=== PATIENT | female | born 1985 | race Caucasian/White ===

== ENCOUNTER 2016-05-10 13:52 | Outpatient (RCR) | payer BC ==
[~2016-05-10 13:52] MED LIST: AMOX-358 PO; CARB10VI IV; CITA10TA70 PO; HYOS0.1216 PO; ONDA-42 SL; OXYC-197 PO; PREN1TAB71 PO; SPRINTEC PO; VALIUM; VNL37.5T PO; benadryl; decadron; gabapentin; gabapentin PO; taxol
--- OUTSIDE RECORDS SUMMARY | 2016-05-10 13:56 | XMS REPORT | Continuity of Care Document ---
Author Author [facility] Organization [facility] Address Unknown Phone Unavailable Care Team Providers Care Pharm Spec Name Role Phone Dhara Stanton PCP [phone] Source Comments Some departments are not documenting in the electronic medical record. If you do not see the information that you expected, contact Release of Information in the Health Information Management department at [phone] for further assistance in locating additional records.[facility] Active Allergies and Adverse Reactions Allergen Noted Date Severity Reactions Comments Keflex 07/23/2014 Medium RASH Current Medications Prescription Sig. Disp. Refills Start End Date Status Date cetirizine (ZYRTEC) 10 mg Take 10 mg by mouth Active tablet daily. MULTIVITAMIN (VITAMIN A Take by mouth. Active DAY PO) Active Problems Problem Noted Date BRCA1 genetic carrier 08/05/2015 Overview: Formatting of this note may be different from the original. Ms. 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 She is also positive for BRCA 1 mutation and presents to our clinic for treatment and management. DIAGNOSIS: 1. 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 BRCA 1 positive HISTORY: Ms Leung is a female who presented to the Breast Cancer Clinic on 12/18/2013 at age 28 for evaluation of newly diagnosed left breast cancer. She has a significant family history. Left breast sono-guided biopsy 12/24/13 () revealed grade 3 triple negative IDC. Right lower breast MRI-guided biopsy 12/29/13 () revealed fibrosis. She underwent a left skin sparing mastectomy and left SLNBx, and right skin sparing prophylactic mastectomy and placement of tissue expanders 07/13/14. 0/4 lymph nodes were positive, there was no residual cancer in the left mastectomy specimen, and no evidence of malignancy in the right mastectomy specimen. Ms. Trejo had her Dolores exchanged for larger Dolores on 11/16/14. She was admitted on 01/07/15 for a left chest wall cellulitis. She had her Dolores exchanged for silicone implants 04/04/15. 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 Heavy flow with first day. Engaged and planning to 11/2015. Saw a fertility specialist in [place] prior to chemotherapy for oocyte preservation. Last PAP was most likely with oocyte preservation and was negative per patient. Admits to h/o HPV and abnormal PAP with cryotherapy. CHEMO HX: Carboplatin with dose dense Paclitaxel administered from 02/02/14-04/19/14, followed by dose dense Adriamycin and Cytoxan therapy x 3 which ended 05/2014 due to decline in cardiac function. She was then placed on leuprolide for ovarian suppression for short while. Could not recall dates. Engaged and plans to 11/2015 in [place]. Desires and will try conceiving shortly after wedding. Pelvic ultrasound 09/30/15: 1. Resolution of previously noted small thick walled cystic lesion in the left ovary. There has been development of a small cyst with thin internal septation versus 2 adjacent small cysts within the right ovary since 08/30/2015. This measures up to 2.1 cm and is most likely physiologic. If there is further clinical concern, follow-up ultrasound in 6 weeks could be obtained. Lab Results Component Value Date CA125 14 08/30/2015 Last Assessment & Plan: 1. Ms. Leung is a 30 yo female with h/o stage IA, grade 3 triple negative IDC of the L breast and BRCA 1 gene mutation. 2. Desires fertility and presents for surveillance visit. 3. MOON today. 4. Continue monitoring with pelvic ultrasound and CA125. 5. RV 6 months. Aware to call with symptoms such as early satiety, abdominal pain/bloating, N/V, vaginal bleeding/discharge or change in bowel/bladder habits. S/P mastectomy, bilateral 07/13/2014 Personal history of breast cancer 12/17/2013 Overview: DIAGNOSIS: 1. 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 BRCA 1 positive HISTORY: Ms Trejo is a female who presented to the Breast Cancer Clinic on 12/18/2013 at age 28 for evaluation of newly diagnosed left breast cancer. She has a significant family history. Left breast sono-guided biopsy 12/24/13 () revealed grade 3 triple negative IDC. Right lower breast MRI-guided biopsy 12/29/13 () revealed fibrosis. She underwent a left skin sparing mastectomy and left SLNBx, and right skin sparing prophylactic mastectomy and placement of tissue expanders 07/13/14. 0/4 lymph nodes were positive, there was no residual cancer in the left mastectomy specimen, and no evidence of malignancy in the right mastectomy specimen. Ms. Trejo had her Dolores exchanged for larger Dolores on 11/16/14. She was admitted on 01/07/15 for a left chest wall cellulitis. She had her Dolores exchanged for silicone implants 04/04/15. BREAST IMAGING: Mammogram: -- Bilateral diagnostic 11/21 ([facility]) Moderate fibroglandular tissue grossly symmetric. No distinct calcifications or skin thickening identified. Deep left breast 12:00 mildly irregular margins. No associated calcification. No definite enlarged lymph nodes identified. BIRAD-5 Biopsy required. Ultrasound: -- Left breast ultrasound 11/21 ([facility]) of heterogeneously irregularly marginated mass at 12:00, 4-5cm FTN with non-parallel growth component. Hypervascular in periphery. Embedded with mild hypoechoic fibroglandular ridge measuring 13mm suspicious with few scattered simple cysts and few clustered clustered cysts. Left axilla three loosely clustered lymph nodes indeterminate. Left breast CNB 11/21 ([facility]) pathology revealed at 12:00, 4-5cm FTN, high grade DCIS without necrosis, no invasive carcinoma detected. No microcalcifications observed. Left axillary ultrasound 11/21 ([facility]) no specific hypoechoic nodules or gross enlargement. Determined to be benign. -- Targeted left breast ultrasound 12/24/13 () revealed a 1.7 cm hypoechoic mass at 12:00, 5 cm FTN. MRI: -- Bilateral breast MRI 12/24/13 () revealed a 1.5 cm mass at 11:30-12:00 corresponding to the known cancer. There were multiple subcentimeter round/oval enhancing foci in the outer and lower outer right breast. This was asymmetric when compared to the left breast. The largest enhancing focus measured 6 mm. The foci of enhancement did not correspond to cysts or any other definitively benign finding. Scattered benign cysts were seen elsewhere in the right breast. There was no right axillary adenopathy. REPRODUCTIVE HEALTH: Age at first Menarche: 10 Age at First Live : N/A Age at Menopause: pre menopausal : 3 ( termination x 2 and SAB x 1) Para: 0 : N/A Admits that menstrual frequency q 24-28 days with duration 3-4. Heavy flow with first day. Engaged and planning to 11/2015. Saw a fertility specialist in [place] prior to chemotherapy for oocyte preservation. PROCEDURE: 1. Left skin sparing mastectomy and left SLNBx, and right skin sparing prophylactic mastectomy and placement of tissue expanders 07/13/14 2. TE exchange for larger Dolores, 11/16/14 3. Dolores exchanged for silicone implants, 04/04/15 PERTINENT PMH: Negative FAMILY HISTORY: Maternal grandmother with breast cancer. Mother with ovarian cancer, negative for pancreatic. PHYSICAL EXAM on PRESENTATION: Left - 1.5 cm palpable mass at 12:00 5 cm FTN. Right - No palpable breast masses. No skin, nipple, or areolar change. No supraclavicular or axillary adenopathy. MEDICAL ONCOLOGY: Dr. Luther/Dr. Burk PRESENT THERAPY: Finished neoadjuvant AC followed by taxol/carbo REFERRED BY: Dr Adrian Reid ast Assessment & Plan: 1. Ms. Leung is a 30 yo female with h/o stage IA, grade 3 triple negative IDC of the L breast and BRCA 1 gene mutation. 2. Desires fertility and presents for surveillance visit. 3. MOON today. 4. PAP collected. 5. Continue monitoring with pelvic ultrasound and CA125. 6. RV 6 months. Aware to call with symptoms such as early satiety, abdominal pain/bloating, N/V, vaginal bleeding/discharge or change in bowel/bladder habits. Resolved Problems Problem Noted Date Resolved Date Cellulitis 01/07/2015 02/04/2015 Infection and inflammatory reaction due to internal prosthetic device, 01/0702/04/2015 implant, and graft (HCC) Breast asymmetry in female 10/06/2014 05/25/2015 Most Recent Encounters Date Type Specialty Providers Description 03/27/2016 Hospital Encounter 03/26/2016 Hospital Afshan Carrion APRN Breast cancer (HCC) Encounter 03/26/2016 Office Visit Oncology Afshan Carrion APRN BRCA1 genetic carrier (Primary Dx); Personal history of breast cancer 03/26/2016 Hospital Radiology Afshan Carrion APRN Encounter 03/26/2016 Orders Only Oncology Afshan Carrion APRN BRCA1 positive ( Primary Dx) 03/26/2016 Ancillary Oncology Afshan Carrion APRN BRCA1 positive ( Primary Orders Dx); Cyst of left ovary 03/14/2016 Nurse Only Plastic Surgery Corina Souza LPN 02/15/2016 Office Visit Plastic Surgery Carlene Leon MD S/P mastectomy, bilateral (Primary Dx); Personal history of breast cancer; BRCA1 genetic carrier 02/10/2016 Documentation Oncology Gage Burk MD Social History Tobacco Use Types Packs/Day Years Used Date Passive Smoke Exposure - Never Smoker Smokeless Tobacco: Never Used Alcohol Use Drinks/Week oz/Week Comments No 0.0 1-2 drinks per month Last Filed Vital Signs Vital Sign Reading Time Taken Blood Pressure 100/66 03/26/2016 12:10 PM CDT Pulse 64 03/26/2016 12:10 PM CDT Temperature 36.7 C (98 F) 03/26/2016 12:10 PM CDT Respiratory Rate 16 01/23/2016 1:53 PM CDT Height 1.676 m (5' 6") 03/26/2016 12:10 PM CDT Weight 55.157 kg (121 lb 9.6 oz) 03/26/2016 12:10 PM CDT Body Mass Index 19.64 03/26/2016 12:10 PM CDT Oxygen Saturation 100% 03/26/2016 12:10 PM CDT Plan of Care Date Type Specialty Providers Description 07/30/2016 Appointment Breast Clinic / Breast Chirag Robertson DO Center [address] [place] [address] [phone] (Fax) 09/24/2016 Appointment Radiology Afshan Carrion APRN [address] [facility] [address] [place] [address] [phone] (Fax) 09/24/2016 Appointment Oncology 09/24/2016 Appointment Oncology Renetta Irene MD [address] [facility] [address] [place] [address] [phone] (Fax) Health Maintenance Due Date Last Done Comments Physical (Comprehensive) 09/07/1990 Exam Pertussis Vaccine 09/07/1994 Tetanus Vaccine 09/07/2000 Influenza Vaccine 02/09/2016 Cervical Cancer Screening 03/26/2019 03/26/2016, 08/30/2015 Results from Last 3 Months PAP THIN PREP (03/26/2016 1:30 PM) Component Value Range Cytology [facility] [email or web address] Radha Rain MD, Director Cytopathology Department of Pathology and Laboratory Medicine [address] [place] [address] Office: [phone] CYTOLOGY REPORT NAME: MIRIAN LEUNG CYTOLOGY #: [id number] MR #: [id number] ALT ID #: [id number] #: [id number] LOCATION: [facility] DATE OF PROCEDURE: 03/26/2016 13:30 AGE: 30 SEX: F DATE RECEIVED: 03/27/2016 : 1985 TIME RECEIVED: 13:30 PHYSICIAN: RYAN HENDERSON DATE OF REPORT: 04/04/2016 COPY TO: DATE OF PRINTIN04/05/2016 HISTORY: Date of Last Menstrual Period: None Given Menstrual History: Regular No LMP given Contraceptive History: None Cancer History: Breast Infection History: None Given Treatment History: None Other Clinical Conditions: None Given MATERIAL RECEIVED: A: Thin Prep Pap Test-Cervical /Vaginal Cytologic Material ################################################## ###################### Final Diagnosis: A. Thin Prep Pap Test-Cervical /Vaginal Cytologic Material: Satisfactory for evaluation. Quality Indicator: Endocervical/transformation component is present. Negative for intraepithelial lesion or malignancy. Endometrial cells present. This specimen has been sent to [facility] for Human Papilloma Virus (HPV) DNA detection with genotyping (High-risk types). Results will be reported as a separate report in O2. Results will also be reported as an addendum to this Pap smear report. Comment The primary screening of this case is performed at the [facility], [address] [place] [address]. Attestation: By this signature, I attest that I have personally formulated the final interpretation expressed in this report and that the above diagnosis is based upon my examination of the slides and/or other material indicated in this report. clk/04/04/2016 +++Electronically Signed Out By FILOMENA Jordan(ASCP)+++ Cervical cytology is a SCREENING TEST primarily for detecting cancers and precancerous lesions. This screening test has a well documented false negative rate. Your patient's pap test results should be interpreted in conjunction with history and clinical findings. Reported using [facility] terminology. ################################################## ###################### Procedures/Addenda HPV Date Ordered: 04/03/2016 Status: Signed Out Date Complete: 04/03/2016 By: Ayse Molina M.D. Date Reported: 04/05/2016 Interpretation HPV High Risk type 16, PCR: Negative HPV High Risk type 18, PCR: Negative HPV other High Risk Types PCR: Negative - The following other High Risk HPV types were not detected: 31, 33, 35, 39, 45, 51, 52, 56, 58, 59, 66, and 68 Test information: The HPV test is performed at the [facility], [address] [place] [address]. This test was developed and its performance characteristics determined by the department of Laboratory Medicine and Pathology, [facility]. This assay is validated but not FDA approved for vaginal source specimens. Results-Comments {Not Entered} HUMAN PAPILLOMAVIRUS (03/26/2016 1:30 PM) Component Value Range Specimen Source HPV [facility] HPV H Risk Type 16 Negative Reference range: Negative [facility] HPV H Risk Type 18 Negative Reference range: Negative [facility] HPV Other H Risk Type Negative Reference range: Negative The following Other High Risk HPV types were not detected: 31, 33, 35, 39, 45, 51, 52, 56, 58, 59, 66, and 68 [facility] CA125 (03/26/2016 11:00 AM) Component Value Range CA-125 22 <35 U/ml Specimen Blood US TRANSVAGINAL (03/26/2016 10:43 AM) Impressions 1. Normal size uterus and ovaries with interval resolution of previously seen small cyst. 2. Small amount of pelvic free fluid, which is within normal physiological limits. Approved by Juan Powers M.D. on 03/26/2016 1:59 PM By my electronic signature, I attest that I have personally reviewed the images for this examination and formulated the interpretations and opinions expressed in this report Finalized by Madi Baron M.D. on 03/26/2016 2:23 PM. Dictated by Juan Powers M.D. on 03/26/2016 10:51 AM. Narrative ULTRASOUND OF THE PELVIS Clinical History: BRCA1 positive. Cyst of left ovary. Comparison: Pelvic ultrasound from September 30, 2015. Technique: Multiple real time blank scale sonographic images were obtained of the pelvis transvaginally and transabdominally. Findings: Madi Baron M.D. has personally reviewed these images and formulated the interpretations and opinions expressed in this report. The uterus is normal in size measuring 7.5 x 2.0 x 5.5 cm. The endometrium is normal in thickness measuring 0.2 cm. Note is made of small nabothian cysts. No endometrial masses or abnormal blood flow is seen. The right ovary measures 4.1 x 1.1 x 1.1 cm. The resistive index in the right ovary is 0.6. The left ovary measures 2.3 x 1.1 x 0.8 cm. The resistive index in the left ovary is 0.6. No abnormal adnexal masses are present. There is a small amount of pelvic free fluid, which is within normal physiological limits. Procedure Note Interface, Radiant Results - SatMar 26, 2016 2:26 PM CDT ULTRASOUND OF THE PELVIS Clinical History: BRCA1 positive. Cyst of left ovary. Comparison: Pelvic ultrasound from September 30, 2015. Technique: Multiple real time blank scale sonographic images were obtained of the pelvis transvaginally and transabdominally. Findings: Madi Baron M.D. has personally reviewed these images and formulated the interpretations and opinions expressed in this report. The uterus is normal in size measuring 7.5 x 2.0 x 5.5 cm. The endometrium is normal in thickness measuring 0.2 cm. Note is made of small nabothian cysts. No endometrial masses or abnormal blood flow is seen. The right ovary measures 4.1 x 1.1 x 1.1 cm. The resistive index in the right ovary is 0.6. The left ovary measures 2.3 x 1.1 x 0.8 cm. The resistive index in the left ovary is 0.6. No abnormal adnexal masses are present. There is a small amount of pelvic free fluid, which is within normal physiological limits. IMPRESSION 1. Normal size uterus and ovaries with interval resolution of previously seen small cyst. 2. Small amount of pelvic free fluid, which is within normal physiological limits. Approved by Juan Powers M.D. on 03/26/2016 1:59 PM By my electronic signature, I attest that I have personally reviewed the images for this examination and formulated the interpretations and opinions expressed in this report Finalized by Madi Baron M.D. on 03/26/2016 2:23 PM. Dictated by Juan Powers M.D. on 03/26/2016 10:51 AM. US PELVIS NON OB COMP (03/26/2016 10:43 AM) Impressions 1. Normal size uterus and ovaries with interval resolution of previously seen small cyst. 2. Small amount of pelvic free fluid, which is within normal physiological limits. Approved by Juan Powers M.D. on 03/26/2016 1:59 PM By my electronic signature, I attest that I have personally reviewed the images for this examination and formulated the interpretations and opinions expressed in this report Finalized by Madi Baron M.D. on 03/26/2016 2:23 PM. Dictated by Juan Powers M.D. on 03/26/2016 10:51 AM. Narrative ULTRASOUND OF THE PELVIS Clinical History: BRCA1 positive. Cyst of left ovary. Comparison: Pelvic ultrasound from September 30, 2015. Technique: Multiple real time blank scale sonographic images were obtained of the pelvis transvaginally and transabdominally. Findings: Madi Baron M.D. has personally reviewed these images and formulated the interpretations and opinions expressed in this report. The uterus is normal in size measuring 7.5 x 2.0 x 5.5 cm. The endometrium is normal in thickness measuring 0.2 cm. Note is made of small nabothian cysts. No endometrial masses or abnormal blood flow is seen. The right ovary measures 4.1 x 1.1 x 1.1 cm. The resistive index in the right ovary is 0.6. The left ovary measures 2.3 x 1.1 x 0.8 cm. The resistive index in the left ovary is 0.6. No abnormal adnexal masses are present. There is a small amount of pelvic free fluid, which is within normal physiological limits. Procedure Note Interface, Radiant Results - Mon Mar 26, 2016 2:26 PM CDT ULTRASOUND OF THE PELVIS Clinical History: BRCA1 positive. Cyst of left ovary. Comparison: Pelvic ultrasound from September 30, 2015. Technique: Multiple real time blank scale sonographic images were obtained of the pelvis transvaginally and transabdominally. Findings: Madi Baron M.D. has personally reviewed these images and formulated the interpretations and opinions expressed in this report. The uterus is normal in size measuring 7.5 x 2.0 x 5.5 cm. The endometrium is normal in thickness measuring 0.2 cm. Note is made of small nabothian cysts. No endometrial masses or abnormal blood flow is seen. The right ovary measures 4.1 x 1.1 x 1.1 cm. The resistive index in the right ovary is 0.6. The left ovary measures 2.3 x 1.1 x 0.8 cm. The resistive index in the left ovary is 0.6. No abnormal adnexal masses are present. There is a small amount of pelvic free fluid, which is within normal physiological limits. IMPRESSION 1. Normal size uterus and ovaries with interval resolution of previously seen small cyst. 2. Small amount of pelvic free fluid, which is within normal physiological limits. Approved by Juan Powers M.D. on 03/26/2016 1:59 PM By my electronic signature, I attest that I have personally reviewed the images for this examination and formulated the interpretations and opinions expressed in this report Finalized by Madi Baron M.D. on 03/26/2016 2:23 PM. Dictated by Juan Powers M.D. on 03/26/2016 10:51 AM.
[2016-05-10 14:08] LABS: BASOPHILS % (AUTO) 0 % (0-10); EOSINOPHILS # (AUTO) 0.1 10^3/uL (0.0-0.3); EOSINOPHILS % (AUTO) 2 % (0-10); LYMPHOCYTES # (AUTO) 2.1 X 10^3 (1.0-4.0); LYMPHOCYTES % (AUTO) 27 % (12-44); MEAN CORPUSCULAR HEMOGLOBIN 33 PG (25-34); MEAN CORPUSCULAR HGB CONC 35 G/DL (32-36); MEAN CORPUSCULAR VOLUME 93 FL (80-99); MEAN PLATELET VOLUME 10.3 FL (7.4-10.4); MONOCYTES # (AUTO) 0.7 X 10^3 (0.0-1.0); MONOCYTES % (AUTO) 9 % (0-12); NEUTROPHILS % (AUTO) 62 % (42-75); PLATELET COUNT 164 10^3/uL (130-400); RED BLOOD COUNT 4.06 10^6/uL (4.35-5.85); RED CELL DISTRIBUTION WIDTH 12.3 % (10.0-14.5); WHITE BLOOD COUNT 7.9 10^3/uL (4.3-11.0)
[2016-05-10 15:25] LABS: ALANINE AMINOTRANSFERASE 14 U/L (0-55); ALBUMIN 4.6 G/DL (3.2-4.5); ANION GAP 10 MMOL/L (5-14); ASPARTATE AMINO TRANSFERASE 24 U/L (5-34); BILIRUBIN,TOTAL 0.4 MG/DL (0.1-1.0); BLOOD UREA NITROGEN 16 MG/DL (7-18); BUN/CREATININE RATIO 21; CALCIUM 9.4 MG/DL (8.5-10.1); CARBON DIOXIDE 23 MMOL/L (21-32); CHLORIDE 106 MMOL/L (98-107); CREATININE SERUM 0.78 MG/DL (0.60-1.30); GFR ESTIMATED > 60; GLUCOSE 70 MG/DL (70-105); POTASSIUM 3.8 MMOL/L (3.6-5.0); SODIUM 139 MMOL/L (135-145); TOTAL PROTEIN 6.7 G/DL (6.4-8.2)
[2016-05-11 06:49] LABS: LUTEINIZING HORMONE 3.1 mIU/mL
[2016-05-11 06:50] LABS: FOLLICLE STIMULATING HORMONE 2.6 mIU/mL
== END 2016-08-02 16:02 | disposition home or self-care (01) ==
LOC: ONC 13:52
PROVIDERS: ATTEND Internal Medicine Hematology & Oncology
DX: C50.412 Malignant neoplasm of upper-outer quadrant of left female breast (principal); Z17.0 Estrogen receptor positive status [ER+]; D64.9 Anemia, unspecified; Z90.13 Acquired absence of bilateral breasts and nipples; Z79.899 Other long term (current) drug therapy
CPT/HCPCS: 36415; 80053; 82670; 83001; 83002; 85025; 99213

== ENCOUNTER 2016-08-09 09:33 | Outpatient (RCR) | payer BC ==
--- OUTSIDE RECORDS SUMMARY | 2016-08-02 16:13 | XMS REPORT | Continuity of Care Document ---
Author Author [facility] Organization [facility] Address Unknown Phone Unavailable Care Team Providers Care [employer] Attendant Name Role Phone Romy Dhara PCP [phone] Source Comments Some departments are not documenting in the electronic medical record. If you do not see the information that you expected, contact Release of Information in the Health Information Management department at [phone] for further assistance in locating additional records.[facility] Active Allergies and Adverse Reactions Allergen Noted Date Severity Reactions Comments Keflex 07/23/2014 Medium RASH Current Medications Prescription Sig. Disp. Refills Start End Date Status Date cetirizine (ZYRTEC) 10 mg Take 10 mg by mouth Active tablet daily. MULTIVITAMIN (VITAMIN A Take by mouth. Active DAY PO) FERROUS FUMARATE (IRON Take by mouth. Active PO) vitamins, B complex tab Take 1 Tab by mouth Active daily. silver sulfADIAZINE Apply topically to 30 g 0 06/19/19 07/25/19 Discontin (THERMAZINE) 1 % topical affected area twice 17 17 ued cream daily. Wash with gentle soap and water then apply cream to affected area twice daily sulfamethoxazole-trimetho Take 1 Tab by mouth twice 07/25/19 Discontin prim (BACTRIM DS) 800-160 daily. 17 ued mg tablet prednisone (DELTASONE) 20 Take 20 mg by mouth daily 07/25/19 Discontin mg tablet with breakfast. 17 ued Active Problems Problem Noted Date Caicedo by, chemical 06/29/2016 BRCA1 genetic carrier 08/05/2015 Overview: Formatting of [...] Dolores exchanged for silicone implants 04/04/15. REPRODUCTIVE/GRE[employer] HEALTH: Age at first Menarche: 10 Age at First Live : N/A Age at Menopause: pre menopausal : 1 ( TAB x 2 and SAB x 1) Para: 0 : N/A Admits that menstrual frequency q 24-28 days with duration 3-4 days. Heavy flow with first day. Engaged and planning to 11/2015. Saw a fertility specialist in [place] prior to chemotherapy for oocyte preservation. Last [...] dates. Engaged and plans to 11/2015 in [place]. Desires and will try conceiving shortly after [...] BREAST IMAGING: Mammogram: -- Bilateral diagnostic 11/21 ([place]) Moderate fibroglandular tissue grossly symmetric. No distinct calcifications or skin thickening identified. Deep left breast 12:00 mildly irregular margins. No associated calcification. No definite enlarged lymph nodes identified. BIRAD-5 Biopsy required. Ultrasound: -- Left breast ultrasound 11/21 ([place]) of heterogeneously irregularly marginated mass at 12:00, 4-5cm FTN with non-parallel growth component. Hypervascular in periphery. Embedded with mild hypoechoic fibroglandular ridge measuring 13mm suspicious with few scattered simple cysts and few clustered clustered cysts. Left axilla three loosely clustered lymph nodes indeterminate. 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 No microcalcifications observed. Left axillary ultrasound 11/21 ([place]) no specific hypoechoic nodules or gross enlargement. [...] to 11/2015. Saw a fertility specialist in [place] prior to chemotherapy for oocyte preservation. PROCEDURE: [...] internal prosthetic device, 01/0702/04/2015 implant, and graft Breast asymmetry in female 10/06/2014 05/25/2015 Most Recent Encounters Date Type Specialty Providers Description 07/26/2016 Telephone Breast Clinic / Breast Hyun Gandara PA-C Results Center 07/25/2016 [facility] Radiology Chirag Robertson DO Encounter 07/25/2016 Office Visit Oncology Carlene Leon MD BRCA1 genetic carrier Hyun Gandara PA-C (Primary Dx); Personal history of breast cancer 07/25/2016 Office Visit Plastic Surgery Carlene Leon MD Personal history of breast cancer (Primary Dx); S/P mastectomy, bilateral; BRCA1 genetic carrier 07/23/2016 Telephone Oncology Afshan Carrion APRN Menstrual Problem 07/17/2016 Telephone Oncology Hyun Gandara PA-C 07/17/2016 Orders Only Oncology Chirag Robertson DO Lump of breast, right (Primary Dx) 06/20/2016 Office Visit Plastic Surgery Carlene Leon MD Caicedo by, chemical (Primary Dx); S/P mastectomy, bilateral; Personal history of breast cancer; BRCA1 genetic carrier 06/19/2016 Orders Only Plastic Surgery Carlene Leon MD Social History Tobacco Use Types Packs/Day Years Used Date Passive Smoke Exposure - Never Smoker Smokeless Tobacco: Never Used Alcohol Use Drinks/Week oz/Week Comments No 0.0 1-2 drinks per month Last Filed Vital Signs Vital Sign Reading Time Taken Blood Pressure 103/61 07/25/2016 3:00 PM RN CLINICAL Pulse 65 07/25/2016 3:00 PM RN CLINICAL Temperature 36.7 C (98.1 F) 07/25/2016 3:00 PM RN CLINICAL Respiratory Rate 16 07/25/2016 3:00 PM RN CLINICAL Height 1.676 m (5' 6") 07/25/2016 3:00 PM RN CLINICAL Weight 54.885 kg (121 lb) 07/25/2016 3:00 PM RN CLINICAL Body Mass Index 19.54 07/25/2016 3:00 PM RN CLINICAL Oxygen Saturation 100% 07/25/2016 3:00 PM RN CLINICAL Plan of Care Date Type Specialty Providers Description 09/24/2016 Appointment Radiology Afshan Carrion, BIOLOGY TUTOR [address] [place] [address] [phone] (Fax) 09/24/2016 Appointment Oncology 09/24/2016 Appointment Oncology Renetta Irene MD [address] [place] [address] [phone] (Fax) 02/06/2017 Appointment Oncology Chirag Robertson DO [address] [place] [address] [phone] (Fax) Health Maintenance Due Date Last Done Comments Physical (Comprehensive) 09/07/1990 Exam Pertussis Vaccine 09/07/1994 Tetanus Vaccine 09/07/2000 Influenza Vaccine 02/09/2016 Cervical Cancer Screening 03/26/2019 03/26/2016, 08/30/2015 Results from Last 3 Months US BREAST TARGET RT (07/25/2016 4:11 PM) Impressions ACR BI-RADS Assessments: BIRAD 2-Benign RECOMMENDATION: Follow-up with your physician. Narrative Performed by: Kitty Sheppard, Canal Superintendent [id number] US BREAST TARGET RT: RIGHT BREAST - JULY 25, 2016 - Technologist: Joanna Irizarry Deputy Sheriff Building [employer] Prior study comparison: January 23, 2016, bilateral [id number] US BREAST TARGET BILAT performed at [facility].August 30, 2015, right breast [id number] US BREAST TARGET RT, performed at [facility] [place] [facility]. Targeted ultrasound of the right chest wall was obtained in the area of palpable abnormality. History of left breast cancer at age 28. Prior bilateral mastectomy and breast implant reconstruction. In the superior right chest wall in the area of palpable abnormality there is an oval mildly heterogeneous hypoechoic circumscribed mass measuring 0.8 x 0.4 x 0.6 cm with surrounding increased echogenicity, most consistent with fat necrosis. Normal appearing right axillary lymph node is visualized. No suspicious mass is identified. Approved by Montana Bernal M.D. on 07/25/2016 4:28 PM By my electronic signature, I attest that I have personally reviewed the images for this examination and formulated the interpretations and opinions expressed in this report Finalized by Sukumar Casiano M.D. on 07/26/2016 8:16 AM. Dictated by Montana Bernal M.D. on 07/25/2016 4:15 PM. Electronically signed and approved by: Sukumar Casiano M.D. [id number] Procedure Note Interface, Radiant Results - [place] Jul 26, 2016 8:19 AM RN CLINICAL Performed by: Kitty Sheppard, Canal Superintendent [id number] US BREAST TARGET RT: RIGHT BREAST - JULY 25, 2016 - Technologist: Joanna Irizarry Deputy Sheriff Building Guard Prior study comparison: January 23, 2016, bilateral [id number] US BREAST TARGET BILAT performed at [facility]. August 30, 2015, right breast [id number] US BREAST TARGET RT, performed at [facility] [place] [facility]. Targeted ultrasound of the right chest wall was obtained in the area of palpable abnormality. History of left breast cancer at age 28. Prior bilateral mastectomy and breast implant reconstruction. In the superior right chest wall in the area of palpable abnormality there is an oval mildly heterogeneous hypoechoic circumscribed mass measuring 0.8 x 0.4 x 0.6 cm with surrounding increased echogenicity, most consistent with fat necrosis. Normal appearing right axillary lymph node is visualized. No suspicious mass is identified. Approved by Montana Bernal M.D. on 07/25/2016 4:28 PM By my electronic signature, I attest that I have personally reviewed the images for this examination and formulated the interpretations and opinions expressed in this report Finalized by Sukumar Casiano M.D. on 07/26/2016 8:16 AM. Dictated by Montana Bernal M.D. on 07/25/2016 4:15 PM. Electronically signed and approved by: Sukumar Casiano M.D. [id number] IMPRESSION ACR BI-RADS Assessments: BIRAD 2-Benign RECOMMENDATION: Follow-up with your physician.
[2016-08-02 16:14] LABS: BASOPHILS % (AUTO) 0 % (0-10); EOSINOPHILS # (AUTO) 0.1 10^3/uL (0.0-0.3); EOSINOPHILS % (AUTO) 1 % (0-10); LYMPHOCYTES # (AUTO) 2.4 X 10^3 (1.0-4.0); LYMPHOCYTES % (AUTO) 29 % (12-44); MEAN CORPUSCULAR HEMOGLOBIN 34 PG (25-34); MEAN CORPUSCULAR HGB CONC 36 G/DL (32-36); MEAN CORPUSCULAR VOLUME 95 FL (80-99); MEAN PLATELET VOLUME 10.4 FL (7.4-10.4); MONOCYTES # (AUTO) 0.9 X 10^3 (0.0-1.0); MONOCYTES % (AUTO) 11 % (0-12); NEUTROPHILS % (AUTO) 59 % (42-75); PLATELET COUNT 181 10^3/uL (130-400); RED BLOOD COUNT 4.15 10^6/uL (4.35-5.85); RED CELL DISTRIBUTION WIDTH 12.7 % (10.0-14.5); WHITE BLOOD COUNT 8.5 10^3/uL (4.3-11.0)
[2016-08-02 16:47] LABS: ALANINE AMINOTRANSFERASE 16 U/L (0-55); ALBUMIN 4.5 G/DL (3.2-4.5); ANION GAP 10 MMOL/L (5-14); ASPARTATE AMINO TRANSFERASE 23 U/L (5-34); BILIRUBIN,TOTAL 0.4 MG/DL (0.1-1.0); BLOOD UREA NITROGEN 13 MG/DL (7-18); BUN/CREATININE RATIO 15; CALCIUM 9.4 MG/DL (8.5-10.1); CARBON DIOXIDE 25 MMOL/L (21-32); CHLORIDE 106 MMOL/L (98-107); CREATININE SERUM 0.84 MG/DL (0.60-1.30); GFR ESTIMATED > 60; GLUCOSE 89 MG/DL (70-105); POTASSIUM 3.5 MMOL/L (3.6-5.0); SODIUM 141 MMOL/L (135-145); TOTAL PROTEIN 6.7 G/DL (6.4-8.2)
== END 2016-10-31 | disposition home or self-care (01) ==
LOC: ONC 09:33
PROVIDERS: ATTEND Internal Medicine Hematology & Oncology
DX: C50.412 Malignant neoplasm of upper-outer quadrant of left female breast (principal); Z17.0 Estrogen receptor positive status [ER+]; D64.9 Anemia, unspecified; Z90.13 Acquired absence of bilateral breasts and nipples; Z79.899 Other long term (current) drug therapy
CPT/HCPCS: 36415; 80053; 85025; 99213